=== PATIENT | male | born 1980 | race Two or more races ===

== ENCOUNTER 2021-12-31 20:45 | Emergency (ER) | payer SELFPAY ==
[~2021-12-31] VITALS: Ht 172.7 cm; Wt 59.0 kg
[2021-12-31 21:08] VITALS: BP 128/98
--- NOTE | 2021-12-31 21:37 | NUR ---
patient is A, Ox4. denied SI/HI. medically stable for D/C per dr Carrion. Patient discharged to home in stable condition. Written and verbal after care instructions given. Patient verbalizes understanding of instruction.
== END 2021-12-31 21:46 | disposition home or self-care (01) ==
LOC: ER 20:46
DX: F10.129 Alcohol abuse with intoxication, unspecified (principal); Y90.9 Presence of alcohol in blood, level not specified